=== PATIENT | male | born 1955 | race Caucasian/White ===

== ENCOUNTER 2017-02-05 08:04 | Day surgery (SDC) | payer OTHER ==
--- NOTE | 2017-02-04 15:59 | HP ---
PREOPERATIVE HISTORY AND PHYSICAL: DATE OF SURGERY/ADMISSION: 02/05/17 ATTENDING SURGEON: Nuria Loay MD * (DICTATED BY VLAD BALES) PROCEDURE: Incision and drainage, right index finger. CHIEF COMPLAINT: Injury to right index finger. 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 He was changing out a barrel washer machine and accidentally cut himself on a metal blade. The wound is on the dorsal aspect of his index finger at the PIP joint. He subsequently developed a lot of swelling and erythema and was started on Augmentin, which he has since finished. The antibiotic helped the swelling and the erythema; however, he still has swelling at the joint and has difficulty flexing the finger. He reports that the drainage has stopped; however, the swelling and pain remain. After evaluation by Dr. Loya, he has agreed to proceed with surgical intervention at this time in the form of an incision and drainage of the right index finger. PAST MEDICAL HISTORY: 1. Hypercholesterolemia. 2. GERD. 3. Anxiety. PAST SURGICAL HISTORY: 1. Hernia repair. 2. [place] teeth extraction. 3. Trigger finger release on the right hand. CURRENT MEDICATIONS: 1. Glucosamine and chondroitin 1500 complex 2 by mouth every day. 2. Lipitor 10 mg daily. 3. Multivitamin daily. 4. Omeprazole 20 mg daily. 5. Paxil 20 mg daily. ALLERGIES: CIPROFLOXACIN, MYCINS, and BACTRIM, all cause hives. FAMILY MEDICAL HISTORY: Diabetes, heart disease, and hypertension. SOCIAL HISTORY: The patient is employed as a registered nurse at [employer]. He denies tobacco use and recreational drug use. He does admit to alcohol use on occasion. REVIEW OF SYSTEMS: General: Negative for fevers, chills, or night sweats. No known anesthesia problems. HEENT: Negative for headache, lightheadedness, or syncopal episode. Integumentary: Negative for abrasions, lesions, or open wounds. Cardiothoracic: Negative for hypertension, chest pain, palpitations, or edema. Pulmonary: Negative for shortness of breath with exertion, chronic cough, COPD. GI: Positive for GERD. Negative for nausea, vomiting, diarrhea, or constipation. : Negative for nocturia, urinary frequency, urgency, history of UTIs, or kidney problems. Musculoskeletal: Positive for current complaint. Negative for chronic or intermittent back pain or history of fractures. Neurological: Negative for paresthesias, numbness, history of seizure, stroke, or epilepsy. Positive for anxiety. Endocrine: Negative for diabetes or thyroid issues. Hematologic: Negative for easy bruising, anemia, excessive bleeding, or history of DVT. Infectious Disease: Negative for history of MRSA, hepatitis C, or HIV. PHYSICAL EXAMINATION GENERAL: Well-developed, well-nourished 61-year-old male, in no acute distress. VITAL SIGNS: Height 5 feet 7-1/2 inches, weight 200 pounds. Pulse rate 68, blood pressure 148/90. HEENT: Normocephalic, atraumatic. Pupils are equal, round, and reactive to light and accommodation. Extraocular movements are intact. Throat is clear. NECK: Supple. No palpable lymph nodes. PULMONARY: Lungs are clear to auscultation bilaterally. No wheezes, rales, or rhonchi. CARDIOVASCULAR: Regular rate and rhythm. S1, S2. No murmurs, rubs, or gallops. No edema. ABDOMEN: Positive bowel sounds, soft, nontender. NEUROLOGICAL: Alert and oriented x3. Cranial nerves II through XII are intact. Sensation is intact to light touch. MUSCULOSKELETAL: On exam of the right index finger, the wound is scabbed over and he has extension of the finger against resistance. He is limited in flexion due to the swelling and pain on the dorsum of the finger. There is no drainage. There is some mild erythema that persists. IMPRESSION: Laceration of right index finger with persistent pain and likely low level infection. PLAN: The patient is scheduled to undergo incision and drainage of the right index finger with Dr. Loya on 02/05/17. He will return to the office 10 to 14 days postop for followup and suture removal. A prescription for Ultracet was e- scribed to the patient's pharmacy for postoperative pain management. VLAD BALES [id number]/[facility] #: [id number] [facility] HOSPITALSoledad
[~2017-02-05 08:04] MED LIST: Lidocaine 1% INJ* 10 MG/ML 30 ML SDV ONE
[2017-02-05] MEDS ORDERED: Lidocaine 1% INJ* 10 MG/ML 30 ML SDV ONE (09:29)
[2017-02-05 10:09] VITALS: BP 134/87
[2017-02-05] MEDS ORDERED: Buffered Lidocaine 0.9% SYRIN* 5 ML/SYR SYRINGE ONE (10:16)
--- NOTE | 2017-02-05 19:02 | OP ---
DATE OF OPERATION: 02/05/17 [facility] DATE OF : 59 SURGEON: Nuria Loya MD. HOME HOSPICE RN: VLAD Severino. ANESTHESIA: Local. PRE-OP DIAGNOSIS: Right index finger laceration with infection. POST-OP DIAGNOSIS: Right index finger laceration with infection. OPERATIVE PROCEDURE: Incision and drainage, right index finger. ESTIMATED BLOOD LOSS: Zero. TOURNIQUET TIME: 10 minutes. INDICATIONS FOR PROCEDURE: Aguilar is a 61-year-old man, who cut himself a couple of weeks ago on a produce wrapper part. He had persistent pain, redness and drainage until a couple of days ago. He presents for I and D of the right index finger. DESCRIPTION OF PROCEDURE: The patient was brought to the operating room, was given a digital block with a total of 15 cc of 1% plain lidocaine. The skin of his right hand and forearm was prepped and draped in the usual sterile fashion. The finger was exsanguinated with a Tourni-Cot and then the laceration was incised. The draining sinus was excised and there was some purulent material, this was cultured. The granulomatous tissue was debrided with a rongeur and then the wound was copiously irrigated with a liter and a half of saline. The skin was loosely reapproximated with 4-0 nylon suture and then the wound was dressed with Xeroform, 4x4, Webril and Coban. The patient tolerated the procedure well and was brought to the recovery room in good condition. [id number]/[facility] #: [id number] MTDD
== END 2017-02-05 10:09 | disposition home or self-care (01) ==
LOC: OREAST 08:04
PROVIDERS: ATTEND Orthopaedic Surgery
DX: S61.210A Laceration without foreign body of right index finger without damage to nail, initial encounter (principal); L08.9 Local infection of the skin and subcutaneous tissue, unspecified; W26.8XXA Contact with other sharp object(s), not elsewhere classified, initial encounter; Y92.9 Unspecified place or not applicable; E78.00 Pure hypercholesterolemia, unspecified; K21.9 Gastro-esophageal reflux disease without esophagitis; F41.9 Anxiety disorder, unspecified; Z88.1 Allergy status to other antibiotic agents
CPT/HCPCS: 87070; 87073; 87205; J2001